=== PATIENT | male | born 1940 | race Caucasian/White ===

== ENCOUNTER → 2021-03-16 | Outpatient (CLI) | payer MEDICARE, BC, SELFPAY | END | disposition home or self-care (01) | PROVIDERS: PCP Family Medicine; Referring Provider Family Medicine; Visit Provider Family Medicine | DX: I10 Essential (primary) hypertension (principal) ==

== ENCOUNTER → 2024-05-28 | Outpatient (CLI) | payer MEDICARE, BC, SELFPAY ==
--- NOTE | 2024-05-28 14:16 | EKG_ITS ---
[facility] Test Date: 2024-05-28 Pat Name: JOSE OBREGON Department: Room: - Gender: Male Geoscientist: RTSJC : 1940 Requested By: Naveen Cueva Order Number: [id number] Reading MD: Naveen Cueva Measurements Intervals Alanson Rate: 52 P: 24 NM: 105 QRS: 63 QRSD: 92 T: 45 QT: 425 QTc: 399 Interpretive Statements SINUS BRADYCARDIA WITH SHORT NM INTERVAL Compared to ECG 03/14/2023 10:15:05 Short NM interval now present /store/S0/[id number].pdf
== END | disposition home or self-care (01) ==
PROVIDERS: Referring Provider Family Medicine; Visit Provider Family Medicine
DX: R26.81 Unsteadiness on feet (principal); R07.9 Chest pain, unspecified
CPT/HCPCS: 93005

== ENCOUNTER → 2024-06-06 | Outpatient (CLI) | payer MEDICARE, BC, SELFPAY ==
--- NOTE | 2024-06-06 12:30 | XR_ITS ---
Examination: Carotid arterial duplex scan, ultrasound. Date and time of exam: June 06, 2024 1307 hours INDICATIONS: Ataxia difficulty standing this month Technique: Multiple sonographic images have been obtained of the carotid arteries and vertebral arteries, B-mode/grayscale imaging and Doppler spectral analysis and color flow Peak systolic and diastolic velocities have been recorded. Systolic diastolic ratios have been calculated. Findings: Right peak systolic velocities: Distal internal carotid artery peak systolic velocity is 0.5 M/sec Proximal internal carotid artery peak systolic velocity is 0.6 M/sec Carotid bifurcation peak systolic velocity is 0.9 M/sec External carotid artery peak systolic velocity is 0.7 M/sec Vertebral artery flow is antegrade. Left peak systolic velocities: Distal internal carotid artery peak systolic velocity is 0.5 M/sec Proximal internal carotid artery peak systolic velocity is 0.5 M/sec Carotid bifurcation peak systolic velocity is 0.9 M/sec External carotid artery peak systolic velocity is 0.8 M/sec Vertebral artery flow is antegrade Doppler waveform analysis demonstrates no spectral broadening Impression: Right internal carotid artery demonstrates 0-10% stenosis. Left internal carotid artery demonstrates 0-10% stenosis.
== END | disposition home or self-care (01) ==
PROVIDERS: PCP Family Medicine; Referring Provider Family Medicine; Visit Provider Family Medicine
DX: R07.9 Chest pain, unspecified (principal); R26.81 Unsteadiness on feet
CPT/HCPCS: 93880

== ENCOUNTER → 2024-06-11 | Outpatient (BNVA) | payer MEDICARE, BC, SELFPAY | END | disposition home or self-care (01) | PROVIDERS: PCP Family Medicine; Referring Provider Family Medicine; Visit Provider Urology | DX: N40.1 Benign prostatic hyperplasia with lower urinary tract symptoms (principal); N13.8 Other obstructive and reflux uropathy; N32.81 Overactive bladder; I12.9 Hypertensive chronic kidney disease with stage 1 through stage 4 chronic kidney disease, or unspecified chronic kidney disease; E11.22 Type 2 diabetes mellitus with diabetic chronic kidney disease; N18.2 Chronic kidney disease, stage 2 (mild); Z87.442 Personal history of urinary calculi; E66.9 Obesity, unspecified; Z68.24 Body mass index [BMI] 24.0-24.9, adult | CPT/HCPCS: 99212; G0463 ==

== ENCOUNTER → 2024-06-11 | Outpatient (CLI) | payer MEDICARE, BC, SELFPAY ==
[2024-06-11 12:35] LABS: Prostate Specific Antigen 1.81 ng/mL (0-4.00)
== END | disposition home or self-care (01) ==
PROVIDERS: PCP Urology; Referring Provider Urology; Visit Provider Urology
DX: N40.1 Benign prostatic hyperplasia with lower urinary tract symptoms (principal)
CPT/HCPCS: 36415; 84153

== ENCOUNTER 2024-07-05 13:15 | Outpatient (CLI) | payer MEDICARE, BC, SELFPAY ==
[2024-07-04 17:53] VITALS: BMI 23.0
[2024-07-05] VITALS (12 sets, daily range): BP systolic 139–167; BP diastolic 65–92; PULSE 54–65; RESP 12–20; TEMP 36.4–36.5; O2SAT 96–100
--- NOTE | 2024-07-05 13:00 | XR_ITS ---
Examination: MRI brain without intravenous contrast. Date and time of exam: July 05, 2024 1437 hours Comparison 12/31/2022 INDICATIONS: Intermittent loss of balance difficulty walking 6 months, dementia history Technique: Multiple axial and sagittal images of the brain obtained. Siemens high-resolution 1.5 Emmy short bore scanners utilized. Sagittal sections, T1-weighted, TR 500, TE 14, are performed. Axial sections proton-density and T2-weighted have been obtained. Inversion recovery axial images, TR 9, 260, TE 111, TI 2500. Diffusion weighted images, axial sections, TR 4800, TE 128, B value 1000 Axial sections, ADC map, TR 4800, TE 128 Findings: Enlargement of the sella turcica is not present. The optic chiasm and infundibular are not remarkable. Prepontine and interpeduncular cisterns are not enlarged. There is no localized enlargement of the medulla or marquita. Fourth ventricle and cerebellar tonsils appear normal in position. No subacute area of hemorrhage density is seen. Mass in the cerebellopontine angle region is not evident. Globes symmetrical. Orbital musculature including medial lateral rectus muscles do not exhibit abnormality. Diffusion-weighted images demonstrate no focus of restricted diffusion. Increased white matter signal moderate Mass effect upon the ventricular system is not identified. Impression: Negative for acute hemorrhage, mass effect or midline shift No acute infarct Moderate chronic microvascular white matter change Bilateral maxillary retention cysts, chronic ethmoid sinusitis
[2024-07-05] MEDS: MIDAZOLAM INJ 1 MG/ML VIAL 2 ML 1.5 MG IV (14:36)
--- NOTE | 2024-07-05 16:26 | PC.NURSE ---
1508 patient is awake,alert, breathing unlabored, s/p MRI with sedation, patient to recover for 1hr in greenhouse laborer 1609 patient is awake, alert, breathing unlabored, discharge instructions given to patient and Violette, patient discharged home in wheelchair with all belongings.
== END 2024-07-05 16:09 | disposition home or self-care (01) ==
LOC: SIRX 07-10 09:34
PROVIDERS: PCP Family Medicine; Referring Provider Family Medicine; Visit Provider Family Medicine
DX: R90.82 White matter disease, unspecified (principal); M27.40 Unspecified cyst of jaw; J32.2 Chronic ethmoidal sinusitis
CPT/HCPCS: 70551; 99152; J2250

== ENCOUNTER → 2024-08-23 | Outpatient (BNVA) | payer MEDICARE, BC, SELFPAY | END | disposition home or self-care (01) | PROVIDERS: PCP Family Medicine; Referring Provider Family Medicine; Visit Provider Urology | DX: N40.1 Benign prostatic hyperplasia with lower urinary tract symptoms (principal); R39.12 Poor urinary stream; Z87.891 Personal history of nicotine dependence; I10 Essential (primary) hypertension; E78.00 Pure hypercholesterolemia, unspecified; K21.9 Gastro-esophageal reflux disease without esophagitis; E11.9 Type 2 diabetes mellitus without complications | CPT/HCPCS: 51741; 51798 ==

== ENCOUNTER → 2024-08-24 | Outpatient (BNVA) | payer MEDICARE, BC, SELFPAY | END | disposition home or self-care (01) | PROVIDERS: PCP Family Medicine; Referring Provider Family Medicine; Visit Provider Urology | DX: N40.1 Benign prostatic hyperplasia with lower urinary tract symptoms (principal); N13.8 Other obstructive and reflux uropathy; I10 Essential (primary) hypertension; E11.9 Type 2 diabetes mellitus without complications; E78.00 Pure hypercholesterolemia, unspecified; K21.9 Gastro-esophageal reflux disease without esophagitis | CPT/HCPCS: 76872 ==

== ENCOUNTER → 2025-02-22 | Outpatient (BNVA) | payer MEDICARE, BC, SELFPAY | END | disposition home or self-care (01) | PROVIDERS: PCP Family Medicine; Referring Provider Family Medicine; Visit Provider Urology | DX: N40.1 Benign prostatic hyperplasia with lower urinary tract symptoms (principal); N13.8 Other obstructive and reflux uropathy; R35.0 Frequency of micturition; Z87.442 Personal history of urinary calculi; I12.9 Hypertensive chronic kidney disease with stage 1 through stage 4 chronic kidney disease, or unspecified chronic kidney disease; E11.22 Type 2 diabetes mellitus with diabetic chronic kidney disease; N18.9 Chronic kidney disease, unspecified | CPT/HCPCS: 81003; 99212; G0463 ==

== ENCOUNTER → 2025-03-08 | Outpatient (BNVA) | payer MEDICARE, BC, SELFPAY | END | disposition home or self-care (01) | PROVIDERS: PCP Family Medicine; Referring Provider Family Medicine; Visit Provider Urology | DX: N40.1 Benign prostatic hyperplasia with lower urinary tract symptoms (principal); N32.81 Overactive bladder; E11.9 Type 2 diabetes mellitus without complications; Z87.891 Personal history of nicotine dependence; I10 Essential (primary) hypertension | CPT/HCPCS: 99212; G0463 ==

== ENCOUNTER 2025-03-10 11:36 | Emergency (ER) | payer MEDICARE, BC, SELFPAY ==
[2025-03-10] VITALS (7 sets, daily range): BP systolic 146–182; BP diastolic 67–90; PULSE 70–88; RESP 16–18; TEMP 36.7–37.2; O2SAT 95–100; BMI 22.1
--- NOTE | 2025-03-10 11:37 | XR_ITS ---
Examination: CT cervical spine without contrast 2-D sagittal reconstructions 2-D coronal reconstructions 3-D reconstructions. Exam date and time: March 10, 2025, 1231 hours INDICATIONS: Ground-level fall today with injury of the neck, neck pain CTDI:vol (mGy) 12.8 DLP: (mGycm) 264 Technique: Multiple 2 mm axial sections of the cervical spine have been obtained. The coronal and sagittal reconstructions have been obtained. 3-D reconstructions have been obtained. Low dose protocols were performed. One or more of the following dose reduction techniques were used; automated exposure control, adjustment of the mA and/or KV according to patient size, use of iterative reconstruction technique. Findings: Axial sections demonstrate intact base of the skull. C1 exhibit satisfactory relationship to the odontoid. No acute cervical vertebral body fracture seen. Alignment posterior spinous processes satisfactory. Radiolucency in the posterior C3 vertebral body, 8 mm, sagittal image 38 Radiolucency in the T1 posterior spinous process, 5 mm, sagittal image 40 Impression: No acute cervical fracture. Osteolytic areas as above, consider elective MRI cervical spine follow-up, pre and postcontrast to exclude early osseous metastatic disease
--- NOTE | 2025-03-10 11:37 | XR_ITS ---
Examination: CT lumbar spine, without contrast. 2-D sagittal reconstructions. 2-D coronal reconstructions. 3-D reconstructions. Date and time of exam: March 10, 2025, 1236 hours INDICATIONS: Ground-level fall today with injury to the lower back, lower back pain CTDI: vol (mGy): 16 DLP: (mGycm): 538 Technique: Multiple 1.25 mm axial sections of the lumbar spine without intravenous contrast have been obtained. 2-D sagittal and coronal reconstructions have been obtained. 3-D reconstructions have been obtained. Low dose protocols were performed. One or more of the following dose reduction techniques were used; automated exposure control, adjustment of the mA and/or KV according to patient size, use of iterative reconstruction technique. Findings: Severe osteopenia Acute burst fracture L1 vertebral body, the fracture involving both pedicles Reduction in height of this vertebral body 50% Retropulsion of the posterior upper margin of this vertebral body 5 mm Advanced disc narrowing L5-S1 Dural ectasia posterior to S1-S2 sagittal image 44 Significant prostatomegaly, irregular prostate contour, transverse dimension 5.1 cm AP dimension 4.1 cm IMPRESSION: Acute burst fracture of L1 vertebral body, the fracture involving both pedicles Retropulsion of the upper posterior margin of this vertebral body 5 mm Significant prostatomegaly irregular prostate contour, recommend correlation with PSA
--- NOTE | 2025-03-10 11:37 | XR_ITS ---
Examination: CT brain head without contrast. 2-D sagittal coronal reconstructions Date and time of exam: March 10, 2025, 1233 hours INDICATIONS: Ground-level fall today with injury to the head, headache CTDI: vol (mGy): 51.4 DLP: (mGycm): 1043 Technique: Multiple CT axial sections of the brain have been obtained, 5 mm slice thickness. Contrast has not been administered. 2-D sagittal, coronal reconstructions have been obtained Low dose protocols were performed. One or more of the following dose reduction techniques were used; automated exposure control, adjustment of the mA and/or KV according to patient size, use of iterative reconstruction technique. Findings: No significant ventricular enlargement. Intra-axial or extra-axial hemorrhage density is not seen. No mass effect or midline shift Basal cisterns are not remarkable. Fourth ventricle is midline. Cranial vault intact. Impression: Negative for acute hemorrhage, mass effect or midline shift
[2025-03-10 12:10] LABS: Basophils # (Auto) 0.0 Thou/mm3 (0.0-0.2); Basophils % (Auto) 0 % (0-2.5); Eosinophils # (Auto) 0.0 Thou/mm3 (0.0-0.5); Eosinophils % (Auto) 0 % (0-10); Hematocrit 32.1 % (41.0-53.0); Hemoglobin 10.8 g/dL (13.5-16.0); Immature Granulocytes Auto 0.12 Thou/mm3 (0.00-0.00); Lymphocytes # (Auto) 1.1 Thou/mm3 (1.0-4.8); Lymphocytes % (Auto) 10 % (10-50); Mean Corpuscular HGB Conc 33.6 g/dl (31.0-37.0); Mean Corpuscular Hemoglobin 30.2 pg (25.0-35.0); Mean Corpuscular Volume 90 fL (80-100); Monocytes # (Auto) 0.4 Thou/mm3 (0.0-0.8); Monocytes % (Auto) 4 % (0-12); Neutrophils # (Auto) 8.4 Thou/mm3 (1.8-7.7); Neutrophils % (Auto) 84 % (37-80); Nucleated Red Blood Cell # 0.00 Thou/mm3 (0.00-0.00); Nucleated Red Blood Cell % 0 /100 WBC (0); Platelet Count 206 Thou/mm3 (140-440); RDW Standard Deviation 44.7 fL (35.1-43.9); Red Blood Count 3.58 Miln/mm3 (4.50-5.90); White Blood Count 10.1 Thou/mm3 (3.8-10.6)
[2025-03-10 12:35] LABS: Alanine Aminotransferase 11 U/L (10-49); Albumin, Serum 4.7 gm/dL (3.4-4.8); Albumin/Globulin Ratio 2.0 (1.2-2.2); Alkaline Phosphatase 73 U/L (46-116); Anion Gap 10 (7-16); Aspartate Amino Transferase 23 U/L (0-34); BUN/Creatinine Ratio 11 Ratio (12-20); Bilirubin,Total 0.6 mg/dL (0.3-1.2); Blood Urea Nitrogen 17 mg/dL (9-23); Calcium 10.4 mg/dL (8.3-10.6); Calcium (Corrected) 10.4 mg/dL (8.5-10.1); Carbon Dioxide 27.1 mMol/L (20.0-31.0); Chloride 108 mMol/L (98-107); Creatinine (Component) 1.5 mg/dL (0.6-1.3); Estimated Creatinine Clearance 29.9 mL/min (>60); Globulin 2.3 gm/dL (2.3-3.5); Glucose 110 mg/dL (74-106); Osmolality,Calculated 291 (275-295); Potassium 3.8 mMol/L (3.4-5.1); Sodium 145 mMol/L (136-145); Total Protein 7.0 gm/dL (5.7-8.2); eGFR 46 See Note
[2025-03-10 12:37] LABS: INR 1.1 (0.9-1.3); Partial Thromboplastin Time 22.8 Seconds (22.0-36.0); Prothrombin Time 11.9 Seconds (9.0-12.2)
[2025-03-10 13:33] LABS: Collection Type, Urine Clean Catch
[2025-03-10 13:51] LABS: Bilirubin,Urine Negative (Negative); Blood,Urine Negative (Negative); Clarity,Urine Clear (Clear/Hazy); Color,Urine Lt-Yellow (Lt Yel-Yel); Glucose, Urine Negative (Negative); Ketones,Urine Negative (Negative); Leukocyte Esterase,Urine Negative (Negative); Nitrite,Urine Negative (Negative); PH,Urine 7.5 (5.0-7.0); Protein,Urine Trace (Neg - Trace); RBC,Urine 3 /hpf (0-3); Specific Gravity,Urine 1.013 (1.001-1.035); Squamous Epithelial Cell,Urine < 1 /hpf (0-5); Urobilinogen,Urine Negative mg/dL (0.0-1.0); WBC,Urine 1 /hpf (0-5)
[2025-03-10] MEDS: ACETAMINOPHEN 325 MG TABLET 650 MG PO (13:51)
[2025-03-10] MEDS: ONDANSETRON INJ 2 MG/ML INJ 2 ML 4 MG IVP (17:12)
[2025-03-10] MEDS: MORPHINE SULF INJ 4 MG/ML VIAL IVP (17:12)
--- NOTE | 2025-03-10 18:54 | PD.EDADULT ---
ED General RME/HPI General Chief complaint: Fall Stated complaint: FALL Time Seen by Provider: 03/10/25 11:37 Arrival date/time: 03/10/25 11:36 CC: Low back pain HPI patient fell after bending over and then standing upright while in his closet patient admits he has had balance issues patient promptly fell landing on his buttocks. Patient immediately experienced low back pain denies any numbness tingling in the lower extremities or saddle anesthesia bowel or bladder symptoms. Localized pain is 6 on a 10 scale nonradiating. Patient denies neck pain loss of conscious altered level of consciousness nausea or vomiting EMS reports stable vital signs and route. Related Data Home Medications ?Medication ?Instructions ?Recorded ?Confirmed pravastatin 40 mg tablet 40 mg PO HS #0 tabs 10/02/15 03/08/25 (Pravachol) ibandronate 150 mg tablet (Boniva) 150 mg PO Q30D #0 tabs 10/01/16 03/08/25 sitagliptin phosphate 100 mg 100 mg PO QDAY 05/15/18 03/08/25 tablet (Januvia) calcitonin (salmon) 200 1 spray intranasal (ALT) QDAY 11/15/18 03/08/25 unit/actuation nasal spray mirabegron 25 mg tablet,extended 25 mg PO QDAY 12/04/21 03/08/25 release 24 hr (Myrbetriq) tamsulosin 0.4 mg capsule (Flomax) 0.8 mg PO QDAY 12/12/23 03/08/25 potassium citrate 10 mEq (1,080 10 meq PO BID 06/11/24 03/08/25 mg) tablet,extended release cinacalcet 60 mg tablet 60 mg PO DAILY 07/05/24 03/08/25 furosemide 20 mg tablet 20 mg PO DAILY 07/05/24 03/08/25 pantoprazole 40 mg tablet,delayed 40 mg PO QDAY 07/05/24 03/08/25 release (Protonix) rivastigmine tartrate 1.5 mg 1.5 mg PO BID 07/05/24 03/08/25 capsule sertraline 50 mg tablet 50 mg PO DAILY 07/05/24 03/08/25 Previous Rx's ?Medication ?Instructions ?Recorded meloxicam 7.5 mg tablet 7.5 mg PO QDAY #14 tabs 03/10/25 Allergies Allergy/AdvReac Type Severity Reaction Status Date / Time No Known Allergies Allergy Verified 03/08/25 17:13 Review of Systems Review of Systems Narrative Review of Systems: GEN: No fever, no chills, no weight loss EYES: No discharge, no visual changes, no pain HEENT: No ear pain, no congestion, no sore throat PULM: No shortness of breath, no cough, no congestion CV: No chest pain, no dyspnea on exertion, no palpitations GI: No nausea, no vomiting, no diarrhea, no pain, no constipation : No frequency, no urgency, no dysuria MUSC/SKEL: No joint pain, + back pain SKIN: No rash PSYCH: No hallucinations, no depression HEME/LYMPH: No easy bleeding or bruising tendencies NEURO: No weakness, no headache ED Exam Narrative Physical exam: [General: In mild discomfort but not in any acute distress Head normocephalic, no step-off hematoma induration ulceration crepitus or depression. HEENT: Eyes pupils are PERRLA EOM intact mouth pink moist membranes uvula is midline nose no rhinorrhea or otorrhea no facial asymmetry no epistaxis. No facial bogginess no step-off in the upper or lower mandibles with palpation. Within acceptable limits Neck is supple nontender to palpation of the cervical spinous process no LAD or edema. Full range of motion flexion extension and rotation. Chest equal chest rise nontender to palpation Respiratory: Clear to auscultation no wheezes crackles or rubs CV: Rate rhythm is regular no murmurs rubs or clicks Abdomen is soft nontender no masses positive bowel sounds all 4 quadrants Back: Tenderness to the lower back with diffuse palpation. No CVA tenderness no spinous process tenderness from cervical spine thoracic and lumbar spine Skin: Intact no petechiae rash induration ulceration or crepitus Extremities: Decreased range of motion of the lower extremity secondary to low back pain. Moving all other extremities against resistance cap refill less than 2 seconds neurosensory intact Neuro: Awake alert oriented x3 Glascow coma 15 no focal deficits] Course Quality Measures none Orders Category Date Time Status Miscellaneous Nursing Order NOW Care 03/10/25 17:[address] cervical spine wo con Stat Exams 03/10/25 11:[address] head/brain wo con Stat Exams 03/10/25 11:[address] lumbar spine wo con Stat Exams 03/10/25 11:37 Completed CBC Stat Lab 03/10/25 12:00 Completed CMP [Comprehensive Metabolic Panel] Stat Lab 03/10/25 12:00 Completed PT [Prothrombin Time with INR] Stat Lab 03/10/25 12:00 Completed PTT [Partial Thromboplastin Time] Stat Lab 03/10/25 12:00 Completed Urinalysis Stat Lab 03/10/25 13:12 Completed Acetaminophen Tab [Tylenol Tab] Med 03/10/25 13:43 Discontinued 650 mg PO X1 ONE Morphine* Inj Med 03/10/25 16:56 Discontinued 4 mg IVP NOW ONE Ondansetron Inj [Zofran Inj] Med 03/10/25 16:56 Discontinued 4 mg IVP X1 ONE oxyCODONE/APAP 5/325 [Percocet 5/325] Med 03/10/25 18:07 Discontinued 1 tab PO X1 ONE Vital Signs Vital signs: Vital Signs Temperature 99.0 F 03/10/25 11:40 Pulse Rate 78 03/10/25 11:40 Respiratory Rate 18 03/10/25 11:40 Blood Pressure 182/88 H 03/10/25 11:40 Pulse Oximetry (%) 95 03/10/25 11:40 Oxygen Delivery Method Room Air 03/10/25 11:40 Discharge Plan Plan Patient Disposition: HOME (Self Care) Patient condition on transfer: Stable Prescriptions/Referrals Prescriptions/Med Rec: New meloxicam 7.5 mg tablet 7.5 mg PO QDAY Qty: 14 0RF No Action sitagliptin phosphate [Januvia] 100 mg tablet 100 mg PO QDAY potassium citrate 10 mEq (1,080 mg) tablet extended release 10 meq PO BID Myrbetriq 25 mg tablet extended release 24 hr 25 mg PO QDAY tamsulosin [Flomax] 0.4 mg capsule 0.8 mg PO QDAY pravastatin [Pravachol] 40 MG tablet 40 mg PO HS Qty: 0 ibandronate [Boniva] 150 MG tablet 150 mg PO Q30D Qty: 0 calcitonin (salmon) 200 unit/actuation [place],Non-Aerosol 1 spray INTRANASAL (ALT) QDAY pantoprazole [Protonix] 40 mg tablet,delayed release (DR/EC) 40 mg PO QDAY sertraline 50 mg tablet 50 mg PO DAILY rivastigmine tartrate 1.5 mg capsule 1.5 mg PO BID Patient Comments: TAKE 1 CAPSULE BY MOUTH TWICE A DAY WITH FOOD furosemide 20 mg tablet 20 mg PO DAILY Patient Comments: TAKE 1 TABLET BY MOUTH DAILY cinacalcet 60 mg tablet 60 mg PO DAILY Patient Comments: TAKE 1 TABLET BY MOUTH DAILY WITH FOOD OR AFTER A MEAL Referrals: Naveen Cueva MD [Primary Care Provider, Family Practice] - In 1 week Problem List Clinical Impression: Fall, Compression fracture of L1 vertebra, Back pain Patient/Caregiver Discharge Instructions Education Materials: Back Safety: Standing, Back Safety: Poor Posture Hurts, Back Fracture (Compression Fracture), ED Back Care Tips Additional Instructions: 1: Wear the brace during the day to get up to 90 manage 2: Take the pain medications as prescribed to change out to ibuprofen or Tylenol if needed do not take ibuprofen or naproxen while taking the meloxicam. 3: Contact your primary care doctor for home health assessment secondary to fall risk 4: Seek help if you have difficulty getting out of bed ambulate or walking use the walker on a daily basis. 5: Use the urinal jug nighttime's for the first several days until you are comfortable getting up with the walker to the restroom. 6: Follow-up with your primary care doctor for a back specialist follow-up. Print Language: Nepali Stand Alone Forms: Eugenia Award Info., Patient Portal Info Letter, Work/School Release ANA MARIA/MAGNO Supervising Physician ANA MARIA/MAGNO Supervising Physician: Sander Bailey ENP [facility] Clinical Information Provided by: patient and EMS Medical [facility] and [facility] Meds/Rx considered, not ordered None Labs/Rad/Tests considered, not ordered None Chronic Illness/Social Conditions which may negatively complicate care or outcome(s)-explain: None or not applicable EKG EKG not done Labs Labs: interpreted by sc Lab(s) Interpretation(s): CBC shows no leukocytosis patient has anemia with a hemoglobin of 10.8 and a crit of 32.1. No thrombocytopenia Coags within acceptable limits CMP shows chloride of 108 creatinine of 1.5 glucose of 110 no other electrolyte imbalances renal impairment transaminitis or T. bili elevation Urine shows a pH of 7.5 negative for urinary tract infection. Imaging Imaging Interpretation(s): CT head and C-spine is negative for any acute finding CT of the lumbar spine shows a 50% reduction on a burst acute compression fracture of L1. No significant retropulsion Medication Administration(s) none Medication Administration History Discontinued Medications Acetaminophen (Acetaminophen 325 Mg Tablet) 650 mg PO X1 ONE Stop: 03/10/25 13:44 Last Admin: 03/10/25 13:51 Dose: 650 mg Documented By: BD Morphine Sulfate (Morphine Sulf Inj 4 Mg/Ml Vial) 4 mg IVP NOW ONE Stop: 03/10/25 16:57 Last Admin: 03/10/25 17:12 Dose: 4 mg Documented By: BD Ondansetron HCl (Ondansetron Inj 2 Mg/Ml Inj 2 Ml) 4 mg IVP X1 ONE; Protocol Stop: 03/10/25 16:57 Last Admin: 03/10/25 17:12 Dose: 4 mg Documented By: BD Oxycodone/Acetaminophen (Oxycodone/Apap 5/325 Tablet) 1 tab PO X1 ONE Stop: 03/10/25 18:08 Last Admin: 03/10/25 18:26 Dose: 1 tab Documented By: BD Diagnosis Differential Diagnosis ED Complaint MDM: Compression fracture spinal impingement pedicle fracture
== END 2025-03-10 19:31 | disposition home or self-care (01) ==
PROVIDERS: Registered Nurse General Practice; Emergency Provider Emergency Medicine; PCP Family Medicine
DX: S32.018A Other fracture of first lumbar vertebra, initial encounter for closed fracture (principal); W19.XXXA Unspecified fall, initial encounter
CPT/HCPCS: 36415; 70450; 72125; 72131; 80053; 81001; 85025; 85610; 85730; 96374; 96375; 99283; J2270; J2405; A9270

== ENCOUNTER 2025-03-18 13:15 | Emergency (ER) | payer MEDICARE, BC, SELFPAY ==
[2025-03-18 13:24] VITALS: PULSE 109; O2SAT 97; BMI 22.1
[2025-03-18 13:35] VITALS: BP 154/88; PULSE 99; RESP 18; TEMP 36.7; O2SAT 95
--- NOTE | 2025-03-18 13:35 | EDNOTE_ITS ---
<Statement entered by Subha Alfaro MD - 03/30/25 06:31> As co-signing physician, I was present and available for consult prn. I concur with the plan and care as documented by the midlevel provider. ED General RME/HPI General Chief complaint: Weakness Stated complaint: WEAKNESS Time Seen by Provider: 03/18/25 13:29 Arrival date/time: 03/18/25 13:15 CC: Weakness HPI patient presents to the ER via EMS who reported mild tachycardia but no other abnormal vital signs. Patient states he vomited 6 times and now feels phlegmy in his throat. Patient denies chest pain shortness of breath or difficulty breathing. Patient was seen here 1 week ago for lumbar fracture was given a back brace and the patient appears now via EMS without a back brace on. Patient stated he has not worn it in quite a while . Patient denies numbness or tingling in his lower extremities. Family member at bedside said the patient is constantly nauseated and therefore is not eating. Patient states he is currently not nausea Related Data Home Medications ?Medication ?Instructions ?Recorded ?Confirmed pravastatin 40 mg tablet 40 mg PO HS #0 tabs 10/02/15 03/08/25 (Pravachol) ibandronate 150 mg tablet (Boniva) 150 mg PO Q30D #0 t abs 10/01/16 03/08/25 sitagliptin phosphate 100 mg 100 mg PO QDAY 05/15/1805/08/24 tablet (Januvia) calcitonin (salmon) 200 1 spray intranasal (ALT) QDA Y 11/15/18 03/08/25 unit/actuation nasal spray mirabegron 25 mg tablet,extended 25 mg PO QDAY 2 03/08/25 release 24 hr (Myrbetriq) tamsulosin 0.4 mg capsule (Flomax) 0.8 mg PO QDAY 11/1703/08/25 potassium citrate 10 mEq (1,080 10 meq PO BID 06/11/24 03/08/25 mg) tablet,extended release cinacalcet 60 mg tablet 60 mg PO DAILY 07/05/2402/17 furosemide 20 mg tablet 20 mg PO DAILY 07/05/2402/17 pantoprazole 40 mg tablet,delayed 40 mg PO QDAY 03/08/25 release (Protonix) rivastigmine tartrate 1.5 mg 1.5 mg PO BID 07/05/24 capsule sertraline 50 mg tablet 50 mg PO DAILY 07/05/2402/17 Previous Rx's ?Medication ?Instructions ?Recorded meloxicam 7.5 mg tablet 7.5 mg PO QDAY #14 tabs 02/17 07/10 ondansetron 4 mg disintegrating 4 mg PO Q8H #20 tabs 1 05/19/24 tablet Allergies Allergy/AdvReac Type Severity Reaction Status Date / Time No Known Allergies Allergy Verified 03/18/25 13:28 Review of Systems Review of Systems Narrative Review of Systems: GEN: No fever, no chills, no weight loss EYES: No discharge, no visual changes, no pain HEENT: No ear pain, no congestion, no sore throat PULM: No shortness of breath, no cough, no congestion CV: No chest pain, no dyspnea on exertion, no palpitations GI: No nausea, no vomiting, no diarrhea, no pain, no constipation : No frequency, no urgency, no dysuria MUSC/SKEL: No joint pain, no back pain SKIN: No rash PSYCH: No hallucinations, no depression HEME/LYMPH: No easy bleeding or bruising tendencies NEURO: + weakness, no headache Past Medical History Past Medical History NEUROLOGIC: Positive Neurological Disorders and Migraine; Negative Cerebrovascular Accident, Transient Ischemic Attacks (TIA), Dementia, Alzheimer's Disease, Parkinson's Disease, Brain Tumor, Meningitis, Seizures, Epilepsy, Multiple Sclerosis, Cerebral Palsy, Amyotrophic Lateral Sclerosis (ALS/Anisa Gehrig's), Guillain-[place] Syndrome, Spina Bifida, Paralysis, Peripheral Neuropathy, Brown's Palsy, Subdural Hematoma, Head Trauma, Spinal Cord Injury or Traumatic Brain Injury CARDIAC: Positive Cardiac Disorders, Heart Murmur, Hypercholesterolemia, Edema (ankles) and Hypertension; Negative Myocardial Infarction, Cardiac Arrhythmia, Atrial Fibrillation, Angina, Coronary Artery Disease, Atherosclerotic Heart Disease, Peripheral Vascular Disease, Aneurysm, Congestive Heart Failure, Congenital Heart Disease, Valvular Heart Disease, Rheumatic Fever, Cardiomyopathy, Pericarditis, Cellulitis, Deep Vein Thrombosis, Hypotension or Varicose Veins RESPIRATORY: Negative Chronic Obstructive Pulmonary Disease (COPD), Asthma, Bronchitis, Emphysema, Pneumonia, Pulmonary Fibrosis, Cystic Fibrosis, Tuberculosis, Pulmonary Embolism, Pulmonary Edema or Sleep Apnea GASTROINTESTINAL: Positive Gastrointestinal Disorders, Ulcer and Gastroesophageal Reflux Disease; Negative Hepatitis, Cirrhosis, Pancreatitis, Celiac Disease, Gall Bladder Disease, Gastrointestinal Bleed, Esophageal Varices, Michele's Esophagus, Colitis, Ulcerative Colitis, Diverticulitis, Diverticulosis, Colorectal Cancer, Irritable Bowel, Crohn's Disease, Obstructive Bowel, Hiatal Hernia, Hemorrhoids or Obesity GENITOURINARY: Positive Genitourinary Disorders, Kidney Stones (2019 HAD PROC) and Benign Prostatic Hyperplasia; Negative Renal Disease, Polycystic Kidney Disease, Neurogenic Bladder, Inguinal Hernia, Dialysis or Prostate Cancer REPRODUCTIVE: Negative Breast Cancer or Testicular Cancer MUSCULOSKELETAL: Positive Musculoskeletal Disorders, Arthritis, Osteoporosis and Carpal Tunnel Syndrome (right wrist); Negative Muscular Dystrophy, Myasthenia Gravis, Marfan's Syndrome, Bone Cancer, Rheumatoid Arthritis, Degenerative Disk Disease, Gout, Scoliosis, Fibromyalgia, Fractures, Degenerative Joint Disease, Osteomyelitis or Poliovirus ENT: Positive Cataracts (LEFT) and Glaucoma (TAKES MED); Negative Blind, Retinal Detachment, Macular Degeneration, Ear Infection, Deafness, Head Trauma or Eye Prosthesis ENDOCRINE: Positive Endocrine Disorders and Diabetes Mellitus Type 2; Negative Diabetes Mellitus Type 1, Hypoglycemia, Sheridan's Syndrome, Trevon's Disease, Hyperthyroidism, Hypothyroidism, Parathyroid Disease, Pituitary Disease, Systemic Lupus Erythematosus, Syndrome of Inappropriate Antidiuretic Hormone (SIADH), Adrenal Disease or Graves' Disease HEMATOLOGIC: Positive Anemia; Negative Blood Disorders, Leukemia, Hemophilia, Thalassemia, Sickle Cell Disease or Clotting Problems PSYCHO/SOCIAL: Negative Psychiatric Problems, Schizophrenia, Recreational Drug Use, Bipolar Disorder, Depression, Anxiety, Behavior Problems, Self-Mutilation, Attention Deficit Disorder, Attention Deficit Hyperactivity Disorder, Depression, Post Traumatic Stress Disorder or Eating Disorder OTHER HISTORY: Positive Hospitalization, Shingles, Falls, Chicken Pox, Measles and Mumps; Negative Autoimmune Disease, Down Syndrome, Autism, Developmental Delay, Blood Transfusions, Blood Transfusion Reaction, Anesthesia Reactions, Organ Transplant, Chemotherapy, Radiation Therapy, Hyperbaric Therapy, MRSA, VRSA, Vancomycin-Resistant Enterococci, Human Immunodeficiency Virus (HIV), Rubella (Hebrew Measles), Pertussis, Clostridium Difficile, Cancer, Breast Cancer, Colorectal Cancer, Lung Cancer, Prostate Cancer or Testicular Cancer Family History FAMILY HISTORY: Positive Family Cardiac Disorders and Family Cancer; Negative Family Psychiatric Problems, Family Respiratory Disorders, Family Gastrointestinal Problems, Family Surgery or Family Anesthesia Reaction Surgical History SURGICAL: Positive Endocrine Surgery, Eye Surgery (left eye laser cataracts), Tonsillectomy and Vasectomy; Negative Cardiac Surgery, Open Heart Surgery, Coronary Artery Bypass Graft, Valve Replacement, Vascular Surgery, Coronary Stent, Cardiac Catheterization, Pacemaker, Angiogram, Auto Implanted Cardiovert Defib, Carotid Endarterectomy, Thyroidectomy, Ear Surgery, Tympanostomy Tube, Nose Surgery, Oral Surgery, Adenoidectomy, Cochlear Implant, Corneal Transplant, Throat Surgery, Abdominal Surgery, Tracheostomy, Gastric Bypass Surgery, Gastrostomy, Bowel Surgery, Nephrectomy, Transurethral Resection, Joint Replacement, Amputation, Open Reduction Internal Fixation, Arthroscopy, Neurologic Surgery, Brain Shunt or Organ Transplant Social History SMOKING STATUS: Never smoker ED Exam Narrative Physical exam: [General: Thin but not emaciated does not appear in any acute distress Head normocephalic HEENT: Within acceptable limits Neck is supple nontender Chest equal chest rise nontender to palpation Respiratory: Clear to auscultation no wheezes crackles or rubs CV: Rate rhythm is regular no murmurs rubs or clicks Abdomen is soft nontender no masses positive bowel sounds all 4 quadrants Back: No CVA tenderness no spinous process tenderness from cervical spine thoracic and lumbar spine Skin: Intact no petechiae rash induration ulceration or crepitus Extremities: Moving all extremity against resistance cap refill less than 2 seconds neurosensory intact Neuro: Awake alert oriented x3 Glascow coma 15 no focal deficits] Course Quality Measures none Orders Category Date Time Status EKG (ED ONLY) *Do not use* NOW Care 03/18/25 13:39 Completed Saline [Insert IV] NOW Care 03/18/25 14:57 Completed EKG (ED Only) Stat Exams 03/18/25 13:39 Draft XR chest 1V Stat Exams 03/18/25 13:39 Completed B-Type Natriuretic Peptide Stat Lab 03/18/25 13:45 Completed CBC Stat Lab 03/18/25 13:45 Completed Comprehensive Metabolic Panel Stat Lab 03/18/25 13:45 Completed LDH (Lactate Dehydrogenase) Stat Lab 03/18/25 13:45 Completed Magnesium Stat Lab 03/18/25 13:45 Completed Partial Thromboplastin Time Stat Lab 03/18/25 13:45 Completed Prothrombin Time with INR Stat Lab 03/18/25 13:45 Completed Troponin I Stat Lab 03/18/25 13:45 Completed Sodium Chloride 0.9% 1000 ml [Ns] 1,000 ml Med 03/18/25 14:57 Discontinued IV 999 mls/hr Vital Signs Vital signs: Vital Signs Temperature 98.1 F 03/18/25 13:35 Pulse Rate 99 03/18/25 13:35 Respiratory Rate 18 03/18/25 13:35 Blood Pressure 154/88 H 03/18/25 13:35 Pulse Oximetry (%) 95 03/18/25 13:35 Oxygen Delivery Method Room Air 03/18/25 13:35 Discharge Plan Plan Patient Disposition: HOME (Self Care) Patient condition on transfer: Stable Prescriptions/Referrals Prescriptions/Med Rec: New ondansetron 4 mg tablet,disintegrating 4 mg PO Q8H Qty: 20 0RF No Action sitagliptin phosphate [Januvia] 100 mg tablet 100 mg PO QDAY potassium citrate 10 mEq (1,080 mg) tablet extended release 10 meq PO BID Myrbetriq 25 mg tablet extended release 24 hr 25 mg PO QDAY tamsulosin [Flomax] 0.4 mg capsule 0.8 mg PO QDAY pravastatin [Pravachol] 40 MG tablet 40 mg PO HS Qty: 0 ibandronate [Boniva] 150 MG tablet 150 mg PO Q30D Qty: 0 calcitonin (salmon) 200 unit/actuation Broad Top,Non-Aerosol 1 spray INTRANASAL (ALT) QDAY pantoprazole [Protonix] 40 mg tablet,delayed release (DR/EC) 40 mg PO QDAY sertraline 50 mg tablet 50 mg PO DAILY rivastigmine tartrate 1.5 mg capsule 1.5 mg PO BID Patient Comments: TAKE 1 CAPSULE BY MOUTH TWICE A DAY WITH FOOD furosemide 20 mg tablet 20 mg PO DAILY Patient Comments: TAKE 1 TABLET BY MOUTH DAILY cinacalcet 60 mg tablet 60 mg PO DAILY Patient Comments: TAKE 1 TABLET BY MOUTH DAILY WITH FOOD OR AFTER A MEAL meloxicam 7.5 mg tablet 7.5 mg PO QDAY Qty: 14 0RF Referrals: Naveen Cueva MD [Primary Care Provider, Family Practice] - In 1 week Problem List Clinical Impression: Weakness, Nausea, Hypercalcemia Patient/Caregiver Discharge Instructions Other Activity Instructions:: Stop taking calcium supplements. Use the nausea medicine first thing in the morning to resolve your nausea make sure you eat small frequent meals follow-up with your primary care doctor in 1 week for recheck of your calcium levels. Education Materials: Hypercalcemia Dc, ED Weakness (Uncertain Cause) Print Language: Estonian Stand Alone Forms: Eugenia Award Info., Work/School Release, Patient Portal Info Letter ANA MARIA/MAGNO Supervising Physician ANA MARIA/MAGNO Supervising Physician: Sander Bailey ENP MDM Clinical Information Provided by: patient and EMS Medical Records reviewed [facility] and EMS Meds/Rx considered, not ordered None Labs/Rad/Tests considered, not ordered None Chronic Illness/Social Conditions Explain: Recent lumbar fracture EKG Interpretation EKG #1: EKG Interpretation: EKG performed at 1403 shows a ventricular rate of 87 MD interval 123 QRS of 98 QTc of 444 this is sinus rhythm Labs Labs: interpreted by pa Lab(s) Interpretation(s): CBC shows a mild leukocytosis 11.2 and H&H of 12.3 and 36.2 prospectively this is a stable anemia. No thrombocytopenia Coags within acceptable notes CMP shows a gap of 19 creatinine 1.4 no other significant electrolyte imbalances other than magnesium of 11.4 Medication Administration(s) Medication Administration History Discontinued Medications Sodium Chloride (Ns) 1,000 mls @ 999 mls/hr IV .Q1H1M ONE Stop: 03/18/25 15:57 Last Infusion: 03/18/25 16:40 Dose: Infused Documented By: Admin: 03/18/25 15:30 Dose: 999 mls/hr Documented By: ER
--- NOTE | 2025-03-18 13:39 | XR_ITS ---
EXAMINATION: AP chest single view TECHNIQUE: AP portable upright chest single view Date and time: March 18, 2025, 1422 hours, comparison April 24, 2021 INDICATIONS: Coughing vomiting today. FINDINGS: Minor scarring at the right lung base No aspiration pneumonia No pulmonary edema. Normal heart size. Prominent osteopenia IMPRESSION: Negative for aspiration pneumonia
--- NOTE | 2025-03-18 13:39 | EKG_ITS ---
[facility] Test Date: 2025-03-18 Pat Name: JOSE OBREGON Department: Room: - Gender: Male [employer]: : 1940 Requested By: Sander Falcon Order Number: [id number] Reading MD: Sander Falcon Measurements Intervals [place] Rate: 87 P: 46 IN: 123 QRS: 15 QRSD: 98 T: 15 QT: 400 QTc: 482 Interpretive Statements SINUS RHYTHM WITH OCCASIONAL SUPRAVENTRICULAR PREMATURE COMPLEXES POSSIBLE INFERIOR MYOCARDIAL INFARCTION , OF INDETERMINATE AGE [30 ms Q WAVE IN II/aVF] Compared to ECG 05/28/2024 14:19:42 Myocardial infarct finding now present Sinus bradycardia no longer present Short IN interval no longer present /store/[id number]
[2025-03-18 14:09] LABS: Basophils # (Auto) 0.0 Thou/mm3 (0.0-0.2); Basophils % (Auto) 0 % (0-2.5); Eosinophils # (Auto) 0.0 Thou/mm3 (0.0-0.5); Eosinophils % (Auto) 0 % (0-10); Hematocrit 36.2 % (41.0-53.0); Hemoglobin 12.3 g/dL (13.5-16.0); Immature Granulocytes Auto 0.17 Thou/mm3 (0.00-0.00); Lymphocytes # (Auto) 1.4 Thou/mm3 (1.0-4.8); Lymphocytes % (Auto) 13 % (10-50); Mean Corpuscular HGB Conc 34.0 g/dl (31.0-37.0); Mean Corpuscular Hemoglobin 29.9 pg (25.0-35.0); Mean Corpuscular Volume 88 fL (80-100); Monocytes # (Auto) 0.6 Thou/mm3 (0.0-0.8); Monocytes % (Auto) 5 % (0-12); Neutrophils # (Auto) 9.0 Thou/mm3 (1.8-7.7); Neutrophils % (Auto) 81 % (37-80); Nucleated Red Blood Cell # 0.00 Thou/mm3 (0.00-0.00); Nucleated Red Blood Cell % 0 /100 WBC (0); Platelet Count 329 Thou/mm3 (140-440); RDW Standard Deviation 44.5 fL (35.1-43.9); Red Blood Count 4.12 Miln/mm3 (4.50-5.90); White Blood Count 11.2 Thou/mm3 (3.8-10.6)
[2025-03-18 14:24] LABS: INR 1.1 (0.9-1.3); Partial Thromboplastin Time 24.2 Seconds (22.0-36.0); Prothrombin Time 11.6 Seconds (9.0-12.2)
[2025-03-18 14:31] LABS: B-Type Natriuretic Peptide 54 pg/mL (0-100)
[2025-03-18 14:35] LABS: Alanine Aminotransferase 9 U/L (10-49); Albumin, Serum 4.9 gm/dL (3.4-4.8); Albumin/Globulin Ratio 1.8 (1.2-2.2); Alkaline Phosphatase 70 U/L (46-116); Anion Gap 19 (7-16); Aspartate Amino Transferase 18 U/L (0-34); BUN/Creatinine Ratio 15 Ratio (12-20); Bilirubin,Total 1.1 mg/dL (0.3-1.2); Blood Urea Nitrogen 21 mg/dL (9-23); Calcium 11.4 mg/dL (8.3-10.6); Calcium (Corrected) 11.4 mg/dL (8.5-10.1); Carbon Dioxide 28.5 mMol/L (20.0-31.0); Chloride 98 mMol/L (98-107); Creatinine (Component) 1.4 mg/dL (0.6-1.3); Estimated Creatinine Clearance 32.1 mL/min (>60); Globulin 2.8 gm/dL (2.3-3.5); Glucose 82 mg/dL (74-106); LDH (Lactate Dehydrogenase) 242 U/L (120-246); Magnesium 1.7 mg/dL (1.6-2.6); Osmolality,Calculated 290 (275-295); Potassium 3.7 mMol/L (3.4-5.1); Sodium 145 mMol/L (136-145); Total Protein 7.7 gm/dL (5.7-8.2); Troponin I 0.022 ng/mL (0.0-0.045); eGFR 50 See Note
[2025-03-18 15:16] VITALS: BP 158/95; PULSE 83; RESP 16; TEMP 36.7; O2SAT 97
[2025-03-18] MEDS: SODIUM CHLORIDE 0.9% 1000 ML 1,000 ML 999 ML IV (15:30)
[2025-03-18 17:00] VITALS: BP 148/86; PULSE 83; RESP 20; TEMP 36.7; O2SAT 97
== END 2025-03-18 17:22 | disposition home or self-care (01) ==
PROVIDERS: Registered Nurse General Practice; Emergency Provider Emergency Medicine; PCP Family Medicine
DX: E83.52 Hypercalcemia (principal); I49.1 Atrial premature depolarization; R53.1 Weakness; R11.2 Nausea with vomiting, unspecified; R05.9 Cough, unspecified; I10 Essential (primary) hypertension; E78.00 Pure hypercholesterolemia, unspecified
CPT/HCPCS: 36415; 71045; 80053; 80307; 81001; 83615; 83735; 83880; 84484; 85025; 85610; 85730; 93005; 96360; 99283; J7030